=== PATIENT | female | born 2000 | race Caucasian/White ===

== ENCOUNTER 2024-01-17 13:48 | Outpatient (CLI) | payer BC, SELFPAY ==
--- NOTE | 2024-01-17 14:00 | CRLHL7_ITS ---
For Patients: As a result of the Century Cures Act, medical imaging exams and procedure reports are released immediately into your electronic medical record. You may view this report before your referring provider. If you have questions, please contact your health care provider. INDICATION: Dating and viability. LMP 11/14/2023. COMPARISON: None. TECHNIQUE: Real-time nichols-scale imaging of the pelvis was performed. FINDINGS: Sonographic imaging demonstrates a single living intrauterine gestation. The embryo has a regular cardiac rate measuring 171 beats per minute. The embryo`s crown-rump length measures 2.7 cm which corresponds to a gestational age of 9 weeks 4 days with sonographic due date 08/17/2024. There is a normal-appearing yolk sac. The placenta has not yet developed. No evidence of a perigestational hemorrhage. The right ovary was not visualized. The left ovary measures 3.3 x 2.1 x 1.9 cm. No free fluid in the pelvic cul-de-sac. IMPRESSION: 1. Single living intrauterine gestation corresponding to an ultrasound gestational age of 9 weeks 4 days with sonographic due date 08/17/2024. 2. The clinical gestational age by LMP is 9 weeks 1 day. Dictated by Kelley Rodriguez MD @ 01/18/2024 3:11:29 AM (Electronically Signed)
== END 2024-01-17 13:49 | disposition home or self-care (01) ==
LOC: US 13:49
PROVIDERS: PCP Family Medicine; Visit Provider Registered Nurse
DX: Z34.91 Encounter for supervision of normal pregnancy, unspecified, first trimester (principal); Z3A.09 9 weeks gestation of pregnancy
CPT/HCPCS: 76801; 86592; 86703; 86704; 86706; 86762; 86787; 86803; 86850; 86900; 86901; 87086; 87340; 87491; 87591

== ENCOUNTER 2024-01-17 14:46 | Outpatient (CLI) | payer BC, SELFPAY ==
[2024-01-17 19:50] LABS: Chlamydia DNA Amplified* NOT DETECTED (No Detected); GC DNA Amplified* NOT DETECTED (No Detected)
== END 2024-01-17 14:47 | disposition home or self-care (01) ==
PROVIDERS: PCP Family Medicine; Visit Provider Registered Nurse
DX: Z34.91 Encounter for supervision of normal pregnancy, unspecified, first trimester (principal); Z3A.09 9 weeks gestation of pregnancy
CPT/HCPCS: 86592; 86703; 86704; 86706; 86762; 86787; 86803; 86850; 86900; 86901; 87086; 87340; 87491; 87591

== ENCOUNTER 2024-01-31 16:03 | Emergency (ER) | payer BC, SELFPAY ==
[2024-01-31 16:06] VITALS: BP 125/89; PULSE 105; RESP 18; TEMP 36.3; O2SAT 98; BMI 29.4
--- NOTE | 2024-01-31 17:16 | ED_ITS ---
HPI - General Adult General Date Seen: 01/31/24 Chief complaint: Nausea/Vomiting Stated complaint: 11 weeks , vomiting Time Seen by Provider: 01/31/24 17:01 Source: patient Mode of arrival: ambulatory Limitations: no limitations History of Present Illness HPI narrative: Patient is a 23-year-old generally healthy young woman with vomiting during . She reports that she has been having trouble for a number of weeks, initially Zofran was helping but then it stopped working, she was switched to Compazine which she says helped a week ago but then she started vomiting again and it stopped helping. She did refill her Zofran but has not had a chance to pick it up yet. She says she has been vomiting all day, can not keep anything down. She denies abdominal pain, urinary symptoms, fevers, chills, vaginal bleeding. This is her 1st . Related Data Home Medications ?Medication ?Instructions ?Recorded ?Confirmed docosahexaenoic acid 200 mg mg PO 01/17/24 01/17/24 capsule ( DHA) Previous Rx's ?Medication ?Instructions ?Recorded promethazine 25 mg tablet 12.5 - 25 mg (0.5 - 1 x 25 mg) PO 01/17/24 Q4-6H PRN nausea and vomiting #30 tabs Allergies Allergy/AdvReac Type Severity Reaction Status Date / Time amoxicillin Allergy Intermediate Verified 01/17/24 14:37 seasonal Allergy Mild Uncoded 01/17/24 14:37 Review of Systems Status of ROS: Reports: 6 or more systems reviewed and unremarkable except as noted in History and below [facility] Medical History Asthma, exercise induced ?J45.990 - Exercise induced bronchospasm (ICD-10) Surgical History H/O wisdom tooth extraction ?K08.409 - Partial loss of teeth, unspecified cause, unspecified class (ICD- 10) Social History 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 E cigarette use. What is your current living situation?: I presently have a place to live Problems where you live: no known problems In the past 12 months, utilities in danger of being shut off: no In the past 12 mos, have been you worried that your food would run out before you had money to buy more?: never true In the past 12 mos, the food you bought just didn't last and you didn't have money to buy more?: never true Do you use any of these nicotine containing products: Vaping Products How often do you have a drink containing alcohol: never AUDIT-C Alcohol total score: 0 Non-prescribed substance use: denies use How often does anyone, including family, friends and others, physically hurt you : never How often does anyone, including family, friends and others, insult or talk down to you: never How often does anyone, including family, friends and others, threaten you with harm: never How often does anyone, including family, friends and others, scream or curse at you: never Exam Narrative: Exam Narrative: Vital signs reviewed In general, alert, nontoxic young woman. Head: Normocephalic, atraumatic. Eyes: Sclera clear. Pupils equal and reactive. ENT: Mucous membranes moist. Neck: Supple without adenopathy. Heart: Regular rate and rhythm without murmur. Lungs: Clear. No increased work of breathing, crackles or wheezes. Abdomen: Soft, nontender to palpation. Extremities: Well perfused, pulses intact. No significant edema. Neurologic: Alert, conversant. Speech fluent, face symmetric. Moves all extremities equally. Skin: Warm, dry well perfused. Affect: Normal. Const: Vital Signs, click to edit/add: Vital Signs - 24 hr 01/31/24 16:06 Temperature 97.4 F L Pulse Rate [Pulse Oximeter] 105 H Respiratory Rate 18 Blood Pressure [Ri ght Upper Arm] 125/89 Pulse Oximetry 98 Oxygen Delivery Me thod Room Air Documenting provider has reviewed patient's vital signs: yes Course Course ED Course: We will give her some IV fluids here, I am going to try Reglan, discussed with her that if that is helpful I might prescribed that for her and she could potentially just alternate between Zofran and Reglan. Will check some basic labs as well. Abdominal exam is benign, I have low suspicion for alternate causes such as appendicitis, bowel obstruction, urinary tract infection, or gastroenteritis. Labs are overall pretty reassuring. Her carbon oxide level is 19, BUN is 9, creatinine is 0.4, blood sugar is 79. CBC is normal. Urinalysis shows 3+ ketones, otherwise unremarkable. She is feeling improved after fluids and antiemetics here, was able to eat and drink with no further vomiting. I think it is reasonable discharge home. She has Compazine, she can alternate that with the Zofran. Discussed with her that if she continues to have problems over the next couple of weeks that outpatient IV fluids can be arranged through [facility] if needed. Discuss further with them if she has ongoing difficulty. Return to the ER at any time for acute worsening or new symptoms such as significant abdominal pain. Vital Signs Vital signs: Initial Vital Signs Temperature 97.4 F L 01/31/24 16:06 Temperature Source Temporal Artery Scan 01/31/24 16:06 Pulse Rate 105 H 01/31/24 16:06 Pulse Rhythm Regular 01/31/24 16:06 Respiratory Rate 18 01/31/24 16:06 Blood Pressure 125/89 01/31/24 16:06 Blood Pressure Mean 101 01/31/24 16:06 Blood Pressure Position Sitting 01/31/24 16:06 Pulse Oximetry 98 01/31/24 16:06 Oxygen Delivery Method Room Air 01/31/24 16:06 Vital Signs Temperature 97.4 F L 01/31/24 16:06 Pulse Rate 105 H 01/31/24 16:06 Respiratory Rate 18 01/31/24 16:06 Blood Pressure 125/89 01/31/24 16:06 Pulse Oximetry 98 01/31/24 16:06 Oxygen Delivery Method Room Air 01/31/24 16:06 Temperature 97.4 F L 01/31/24 16:06 Pulse Rate 105 H 01/31/24 16:06 Respiratory Rate 18 01/31/24 16:06 Blood Pressure 125/89 01/31/24 16:06 Pulse Oximetry 98 01/31/24 16:06 Oxygen Delivery Method Room Air 01/31/24 16:06 Medications Administered Medications: Discontinued Medications Generic Name Dose Route Start Last Admin Trade Name Freq PRN Reason Stop Dose Admin Sodium Chloride 1,000 mls @ 1,000 mls/hr 01/31/24 17:15 01/31/24 18:56 0.9 % Sodium Chloride 1000 Ml IV 01/31/24 18:14 Infused .Q1H LUIS MIGUEL Infusion Metoclopramide HCl 10 mg/ 102 mls @ 306 mls/hr 01/31/24 17:01 01/31/24 18:06 Sodium Chloride IVPB 01/31/24 17:02 Infused ONCE ONE Infusion Medical Decision Making Lab Data Labs: Lab Results 01/31/24 01/31/24 Range/Units 17:33 Unknown WBC 10.21 (4.50-11.00) K/uL RBC 4.87 (4.00-5.20) m/uL Hgb 14.0 (12.0-16.0) gm/dL Hct 42.8 (33.0-51.0) % MCV 88 (80-100) fL MCH 29 (26-34) pg MCHC 33 (32-36) gm/dL RDW Coeff of Nuha 12.5 (11.5-15.5) % Plt Count 293 (140-440) K/uL Neut % (Auto) 73.0 H (42.0-72.0) % Lymph % (Auto) 20.0 (20-44) % [place] % (Auto) 5.5 (0.0-11.0) % Eos % (Auto) 1.2 (0.0-7.0) % Baso % (Auto) 0.2 (0.0-3.0) % Neut # (Auto) 7.50 H (1.7-7.0) K/uL Lymph # (Auto) 2.04 (0.90-2.90) K/uL [place] # (Auto) 0.60 (0.00-0.90) K/UL Eos # (Auto) 0.12 (0.00-0.50) K/uL Baso # (Auto) 0.02 (0.00-0.30) K/uL Abs Immat Gran (auto) 0.01 (0.00-0.30) K/uL Imm/Tot Granulo (auto) 0.1 % Sodium 138 (135-149) mmol/L Potassium 3.8 (3.6-5.1) mmol/L Chloride 104 (96-114) mmol/L Carbon Dioxide 19 L (20-32) mmol/L Anion Gap 15 (7-15) mEq/L BUN 9 (5-24) mg/dL Creatinine 0.4 L (0.5-1.5) mg/dL Estimated Creat Clear 212.71 Estimated GFR 143 ml/min Glucose 79 (60-115) mg/dL Calcium 10.0 (8.4-10.6) mg/dL Urine Color Dark yellow (Yellow) Urine Appearance Cloudy A (Clear) Urine pH 5.5 (5.0-8.5) Ur Specific Bradley >= 1.030 (1.000-1.030) Urine Protein 2+ A (Negative) Urine Glucose (UA) Negative (Negative) Urine Ketones 3+ A (Negative) Urine Blood Trace-intact A (Negative) Urine Nitrite Negative (Negative) Urine Bilirubin 1+ A (Negative) Urine Urobilinogen 0.2 (0.2-1.0) Ur Leukocyte Esterase Negative (Negative) Urine RBC 0-2 (0-2) Urine WBC 2-5 (0-5) Ur Squamous Epith Cells Moderate A (None-Few) Urine Bacteria Few A (None) Urine Yeast Few A (None) Discharge Plan Discharge Clinical Impression: Nausea and vomiting during Patient Disposition: Home, Self-Care Condition: Improved Instructions: Nausea and Vomiting in (ED) Additional Instructions: Continue use of Zofran at home, if needed can try alternating with Compazine. If not having let controlling vomiting with this, please talk with your OB provider. Outpatient IV fluids can be arranged if needed. Return any time for significant worsening or new symptoms. Prescriptions: No Action DHA 200 mg capsule PO promethazine 25 mg tablet 12.5 - 25 mg PO Q4-6H PRN (Reason: nausea and vomiting) Qty: 30 0RF Follow Up/Referrals: Dalila Fregoso MD [Primary Care Provider] - Stand Alone Forms: [place] [employer] Info Instructions
[2024-01-31 17:28] LABS: Appearance Urine Cloudy (Clear); Bilirubin Urine 1+ (Negative); Blood Urine Trace-intact (Negative); Color Urine Dark yellow (Yellow); Glucose Urine Negative (Negative); Ketones Urine 3+ (Negative); Leukocyte Esterase Urine Negative (Negative); Nitrite Urine Negative (Negative); Protein Urine 2+ (Negative); Specific Gravity Urine >= 1.030 (1.000-1.030); Urobilinogen Urine 0.2 (0.2-1.0); pH Urine 5.5 (5.0-8.5)
[2024-01-31 17:41] LABS: Basophils Absolute Auto 0.02 K/uL (0.00-0.30); Basophils Percent Auto 0.2 % (0.0-3.0); Eosinophils Absolute Auto 0.12 K/uL (0.00-0.50); Eosinophils Percent Auto 1.2 % (0.0-7.0); Hematocrit 42.8 % (33.0-51.0); Immature Granulocytes Abs Auto 0.01 K/uL (0.00-0.30); Immature Granulocytes Pct Auto 0.1 %; Lymphocytes Absolute Auto 2.04 K/uL (0.90-2.90); Mean Corpuscular HGB Conc 33 gm/dL (32-36); Mean Corpuscular Hemoglobin 29 pg (26-34); Mean Corpuscular Volume 88 fL (80-100); Monocytes Percent Auto 5.5 % (0.0-11.0); Platelet Count* 293 K/uL (140-440); RDW Coefficient of Variation % 12.5 % (11.5-15.5); Red Blood Count 4.87 m/uL (4.00-5.20); White Blood Count* 10.21 K/uL (4.50-11.00)
[2024-01-31] MEDS: 0.9 % SODIUM CHLORIDE 1000 ml 1,000 ML IV (17:46)
[2024-01-31] MEDS: METOCLOPRAMIDE HCL 10 MG in 0.9 % SODIUM CHLORIDE 100 ml 100 ML 306 MG IVPB (17:46)
[2024-01-31 17:48] LABS: Slide Review Reflex No
[2024-01-31 17:53] LABS: Chloride* 104 mmol/L (96-114)
[2024-01-31 17:54] LABS: Potassium* 3.8 mmol/L (3.6-5.1); Sodium* 138 mmol/L (135-149)
[2024-01-31 17:56] LABS: Bacteria Urine Few; RBC Urine 0-2 (0-2); Squamous Epithelial Cell Urine Moderate (None-Few)
[2024-01-31 17:56] LABS: Creatinine* 0.4 mg/dL (0.5-1.5); Est. Creatinine Clearance* 212.71; Estimated Glomerular Filt Rate 143 ml/min
[2024-01-31 17:57] LABS: Anion Gap 15 mEq/L (7-15); Blood Urea Nitrogen* 9 mg/dL (5-24); Carbon Dioxide* 19 mmol/L (20-32); Glucose* 79 mg/dL (60-115)
== END 2024-01-31 19:09 | disposition home or self-care (01) ==
PROVIDERS: Emergency Provider Emergency Medicine; PCP Family Medicine
DX: O21.9 Vomiting of pregnancy, unspecified (principal); Z3A.11 11 weeks gestation of pregnancy
CPT/HCPCS: 36415; 80048; 81001; 85025; 87086; 87186; 96365; 99283; 99284; J2765; J7030

== ENCOUNTER 2024-03-06 11:52 | Outpatient (CLI) | payer BC, SELFPAY | END 2024-03-06 11:53 | disposition home or self-care (01) | LOC: NFLDREF 11:53 | PROVIDERS: PCP Family Medicine; Visit Provider Advanced Practice Midwife | DX: O23.42 Unspecified infection of urinary tract in pregnancy, second trimester (principal); N39.0 Urinary tract infection, site not specified | CPT/HCPCS: 87086 ==

== ENCOUNTER 2024-03-23 12:44 | Outpatient (CLI) | payer BC, SELFPAY ==
[2024-03-23 14:45] LABS: Bacterial Vaginosis* Negative (Negative); Candida glab/krus NOT DETECTED (No Detected); Candida species NOT DETECTED (No Detected); Trichomonas vaginalis NOT DETECTED (No Detected)
== END 2024-03-23 12:45 | disposition home or self-care (01) ==
LOC: NFLDREF 12:45
PROVIDERS: PCP Family Medicine; Visit Provider Registered Nurse
DX: O26.892 Other specified pregnancy related conditions, second trimester (principal); R10.2 Pelvic and perineal pain; Z3A.18 18 weeks gestation of pregnancy
CPT/HCPCS: 81513; 87086; 87481; 87661

== ENCOUNTER 2024-04-03 12:37 | Outpatient (CLI) | payer BC, SELFPAY | END 2024-04-03 12:38 | disposition home or self-care (01) | LOC: US 12:37 | PROVIDERS: PCP Family Medicine; Visit Provider Midwife | DX: Z34.92 Encounter for supervision of normal pregnancy, unspecified, second trimester (principal); Z3A.20 20 weeks gestation of pregnancy | CPT/HCPCS: 76805 ==

== ENCOUNTER 2024-04-17 11:56 | Outpatient (CLI) | payer BC, SELFPAY ==
--- NOTE | 2024-04-17 12:15 | CRLHL7_ITS ---
For Patients: As a result of the Century Cures Act, medical imaging exams and procedure reports are released immediately into your electronic medical record. You may view this report before your referring provider. If you have questions, please contact your health care provider. OB ULTRASOUND ALANIS by LMP: 08/20/2024. GA: 22 w, 1 d. Comparison: 04/03/2024. INDICATION: Follow-up missing anatomy views (legs, feet, heart). TECHNIQUE: Real time grayscale imaging of the fetus was performed. Transabdominal. CERVIX: Visualized. Measurement: 3.2 cm. POSITIONING: Vertex. AMNIOTIC FLUID: 3.9 cm. SDP (N: greater than 2 x 1 cm) PLACENTA: Technique: Transabdominal. PLACENTA POSITION: Anterior. DOPPLER: heart rate: 145 bpm. IMPRESSION: 1. Right renal pelviectasis has developed measuring 4.9 mm. 2. Normal cardiac structures. 3. Normal legs and feet. 4. Recommend third trimester follow-up regarding the right renal pelviectasis. Roberth Higgins M.D. Diagnostic Radiologist [email or web address] LYSSA/yonny blancas/Dictated by: Roberth Higgins MD @ 04/17/2024 12:42:00 PM (Electronically Signed)
== END 2024-04-17 11:57 | disposition home or self-care (01) ==
LOC: US 11:57
PROVIDERS: PCP Family Medicine; Visit Provider Advanced Practice Midwife
DX: O35.BXX0 Maternal care for other (suspected) fetal abnormality and damage, fetal cardiac anomalies, not applicable or unspecified (principal); O35.HXX0 Maternal care for other (suspected) fetal abnormality and damage, fetal lower extremities anomalies, not applicable or unspecified; Z3A.22 22 weeks gestation of pregnancy
CPT/HCPCS: 76816

== ENCOUNTER 2024-05-29 11:00 | Outpatient (CLI) | payer BC, SELFPAY | END 2024-05-29 11:01 | disposition home or self-care (01) | LOC: NFLDREF 05-30 16:37 | PROVIDERS: PCP Family Medicine; Referring Provider Family Medicine; Visit Provider Obstetrics & Gynecology | DX: Z34.93 Encounter for supervision of normal pregnancy, unspecified, third trimester (principal); Z3A.28 28 weeks gestation of pregnancy | CPT/HCPCS: 86592 ==

== ENCOUNTER 2024-06-12 13:41 | Outpatient (CLI) | payer BC, SELFPAY ==
--- NOTE | 2024-06-12 14:00 | CRLHL7_ITS ---
For Patients: As a result of the Century Cures Act, medical imaging exams and procedure reports are released immediately into your electronic medical record. You may view this report before your referring provider. If you have questions, please contact your health care provider. ULTRASOUND OB PELVIS FOLLOW-UP SUBOPTIMAL VIEWS, TRANSABDOMINAL CLINICAL HISTORY: LMP: 11/14/2023. ALANIS by LMP: 08/20/2024. GA: 30w, 1d. Single. INDICATION: Re-evaluate right renal pelvis. CERVIX: Not visualized. POSITIONING: Vertex. AMNIOTIC FLUID: 5.8 cm. PLACENTA: Technique: Transabdominal. PLACENTA POSITION: Anterior. DOPPLER: heart rate: 134 bpm. IMPRESSION: Right renal pelvis measures 7.4 mm. Continued follow-up recommended. Roberth Higgins M.D. Diagnostic Radiologist [email or web address] SP/Dictated by: Roberth Higgins MD @ 06/12/2024 7:04:00 PM (Electronically Signed)
== END 2024-06-12 13:42 | disposition home or self-care (01) ==
LOC: US 13:42
PROVIDERS: PCP Family Medicine; Visit Provider Obstetrics & Gynecology
DX: Z34.93 Encounter for supervision of normal pregnancy, unspecified, third trimester (principal); Z3A.30 30 weeks gestation of pregnancy
CPT/HCPCS: 76816

== ENCOUNTER 2024-07-10 12:24 | Outpatient (CLI) | payer BC, SELFPAY | END 2024-07-10 12:25 | disposition home or self-care (01) | LOC: NFLDREF 07-17 22:44 | PROVIDERS: PCP Family Medicine; Referring Provider Family Medicine; Visit Provider Obstetrics & Gynecology | DX: Z34.93 Encounter for supervision of normal pregnancy, unspecified, third trimester (principal); Z3A.34 34 weeks gestation of pregnancy | CPT/HCPCS: 82728 ==

== ENCOUNTER 2024-07-13 19:45 | Outpatient (CLI) | payer BC, SELFPAY ==
[2024-07-13 19:55] VITALS: BP 127/78; PULSE 96
[2024-07-13 20:29] LABS: Appearance Urine Clear (Clear); Bilirubin Urine Negative (Negative); Blood Urine Negative (Negative); Color Urine Yellow (Yellow); Glucose Urine Negative (Negative); Ketones Urine 2+ (Negative); Leukocyte Esterase Urine Negative (Negative); Nitrite Urine Negative (Negative); Protein Urine Negative (Negative); Urobilinogen Urine 0.2 (0.2-1.0)
[2024-07-13 20:38] VITALS: BP 119/74; PULSE 84
--- NOTE | 2024-07-13 21:20 | PC.OBNST ---
NST Note NST Note Start: 07/13/24 19:53 Freq: ONCE Status: Active Protocol: Document 07/13/24 21:18 LANETTE (Rec: 07/13/24 21:19 LANETTE Desktop) NST Note 1 Para (# of births) 0 EDC 08/20/24 Gestational Age In Weeks & Days 34 Weeks & 4 Days Patient Presented with Complaint(s) of Other Other Complaints Elevated BP at home. No MD orders to check home BPs she was just curious and it was high. Reactive Yes Appropriate for Gestational Age Yes RN Emma Augustine RN Date 07/13/24 Reactive Yes Appropriate for Gestational Age Yes RN Dr. Ray Date 07/13/24 OB NST charge Yes Complete NST Note via Write Note Yes The provider's electronic signature indicates the NST is reactive/appropriate for gestational age. *Note to provider: If an addendum is required, open the patient's chart and click on the note under the Nurse/Allied Health tab.
== END 2024-07-13 21:11 | disposition home or self-care (01) ==
LOC: OB OUT 19:45 → OB 19:46
PROVIDERS: PCP Family Medicine; Visit Provider Obstetrics & Gynecology
DX: O26.893 Other specified pregnancy related conditions, third trimester (principal); R03.0 Elevated blood-pressure reading, without diagnosis of hypertension; Z3A.34 34 weeks gestation of pregnancy
CPT/HCPCS: 59025; 81003; G0463

== ENCOUNTER 2024-07-24 12:13 | Outpatient (CLI) | payer BC, SELFPAY ==
[2024-07-24] VITALS (11 sets, daily range): BP systolic 108–119; BP diastolic 58–73; PULSE 73–92; O2SAT 97
[2024-07-24 13:10] LABS: Hematocrit 35.5 % (33.0-51.0); Hemoglobin* 11.2 gm/dL (12.0-16.0); Mean Corpuscular HGB Conc 32 gm/dL (32-36); Mean Corpuscular Hemoglobin 28 pg (26-34); Mean Corpuscular Volume 90 fL (80-100); Platelet Count* 282 K/uL (140-440); Red Blood Count 3.96 m/uL (4.00-5.20); White Blood Count* 8.49 K/uL (4.50-11.00)
[2024-07-24 13:23] LABS: Alanine Aminotransferase* 15 U/L (4-35); Aspartate Amino Transferase* 27 U/L (12-35); Creatinine* 0.4 mg/dL (0.5-1.5); Estimated Glomerular Filt Rate 142 ml/min
[2024-07-24 13:44] LABS: Slide Review Reflex No
[2024-07-24 14:22] LABS: Total Protein Urine < 5 mg/dL
[2024-07-24 14:23] LABS: Creatinine Urine 106.8 mg/dL; Protein Creatinine Ratio Urine 0.05 (0-0.19)
--- NOTE | 2024-07-24 15:06 | PC.OBNST ---
NST Note NST Note Start: 07/24/24 12:20 Freq: ONCE Status: Active Protocol: Document 07/24/24 15:04 CHEN (Rec: 07/24/24 15:06 CHEN Desktop) NST Note 1 Para (# of births) 0 EDC 08/20/24 Gestational Age In 36 Weeks & 1 Days Weeks & Days Patient Presented Other with Complaint(s) of Other Complaints Elevated BP in clinic, down to center for monitoring, serial pressures and labs Reactive Yes Appropriate for Yes Gestational Age RN Brigid Herrera RN Date 07/24/24 Reactive Yes Appropriate for Yes Gestational Age DAVION Mcnulty RN Date 07/24/24 OB NST charge Yes Complete NST Note Yes via Write Note The provider's electronic signature indicates the NST is reactive/appropriate for gestational age. *Note to provider: If an addendum is required, open the patient's chart and click on the note under the Nurse/Allied Health tab.
== END 2024-07-24 14:50 | disposition home or self-care (01) ==
LOC: OB OUT 12:16 → OB 12:17
PROVIDERS: Obstetrics & Gynecology; PCP Family Medicine; Visit Provider Obstetrics & Gynecology
DX: O26.893 Other specified pregnancy related conditions, third trimester (principal); R03.0 Elevated blood-pressure reading, without diagnosis of hypertension; Z3A.36 36 weeks gestation of pregnancy
CPT/HCPCS: 36415; 59025; 82565; 82570; 84156; 84450; 84460; 85027; 87081; 87653; G0463

== ENCOUNTER 2024-08-11 21:38 | Outpatient (CLI) | payer BC, SELFPAY ==
[2024-08-11] VITALS (7 sets, daily range): BP systolic 114–118; BP diastolic 70–75; PULSE 76–99; O2SAT 97
[2024-08-11] MEDS: METOCLOPRAMIDE 10 MG TABLET PO (23:03)
--- NOTE | 2024-08-12 21:14 | PC.OBNST ---
NST Note NST Note Start: 08/11/24 21:44 Freq: ONCE Status: Discharge Protocol: Document 08/12/24 00:03 CONOR (Rec: 08/12/24 00:04 CONOR [id number]) NST Note 1 Para (# of births) 0 EDC 08/20/24 Gestational Age In 38 Weeks & 6 Days Weeks & Days Patient Presented Pain with Complaint(s) of If Pain, describe Headache 5 out of [address] Other Complaints Elevated Blood Pressures at home. Normotensive at Center. Reactive Yes DAVION Reinoso, RN Date 08/12/24 Reactive Yes DAVION Moses, DAVION Date 08/12/24 OB NST charge Yes Complete NST Note Yes via Write Note The provider's electronic signature indicates the NST is reactive/appropriate for gestational age. *Note to provider: If an addendum is required, open the patient's chart and click on the note under the Nurse/Allied Health tab.
== END 2024-08-11 23:55 | disposition home or self-care (01) ==
LOC: OB OUT 21:38 → OB 21:38
PROVIDERS: PCP Family Medicine; Visit Provider Obstetrics & Gynecology
DX: O26.893 Other specified pregnancy related conditions, third trimester (principal); R51.9 Headache, unspecified; R03.0 Elevated blood-pressure reading, without diagnosis of hypertension; Z3A.38 38 weeks gestation of pregnancy
CPT/HCPCS: 59025; G0463; A9270

== ENCOUNTER 2024-08-22 13:35 | Inpatient (IN) | payer BC, SELFPAY ==
[2024-08-22] VITALS (14 sets, daily range): BP systolic 108–131; BP diastolic 64–76; PULSE 30–222; RESP 18; TEMP 36.8–37; O2SAT 80–99; BMI 33.9
[2024-08-22] MEDS: LACTATED RINGERS 1000 ML 1,000 ML IV (13:15)
[2024-08-22] MEDS: LACTATED RINGERS 1000 ML 1,000 ML 125 ML IV (14:58)
[2024-08-22] MEDS: OXYTOCIN 30 unit/500 ML in NS 30 UNIT/500 ML BAG IVPB (14:58)
[2024-08-22 15:50] LABS: Basophils Absolute Auto 0.02 K/uL (0.00-0.30); Basophils Percent Auto 0.2 % (0.0-3.0); Eosinophils Absolute Auto 0.18 K/uL (0.00-0.50); Eosinophils Percent Auto 1.7 % (0.0-7.0); Hematocrit 32.3 % (33.0-51.0); Hemoglobin* 10.3 gm/dL (12.0-16.0); Immature Granulocytes Abs Auto 0.05 K/uL (0.00-0.30); Immature Granulocytes Pct Auto 0.5 %; Lymphocytes Percent Auto 19.4 % (20-44); Mean Corpuscular HGB Conc 32 gm/dL (32-36); Mean Corpuscular Hemoglobin 28 pg (26-34); Mean Corpuscular Volume 87 fL (80-100); Monocytes Percent Auto 6.1 % (0.0-11.0); Neutrophils Percent Auto 72.1 % (42.0-72.0); Platelet Count* 269 K/uL (140-440); RDW Coefficient of Variation % 12.8 % (11.5-15.5); Red Blood Count 3.71 m/uL (4.00-5.20); White Blood Count* 10.33 K/uL (4.50-11.00)
[2024-08-22 15:52] LABS: Slide Review Reflex No
[2024-08-22] MEDS: DINOPROSTONE 10 MG VAGINAL INSERT VAGINAL (17:35)
--- NOTE | 2024-08-22 18:43 | PM.OBHPLI ---
OB - H&P: HPI Labor/Induction History of Present Illness Date Seen: 08/22/24 Chief complaint: Maternity Narrative: Delayed documentation due to patient cares. Ruben is a 24yo at 40w2d GA who presented for decreased movement. is complicated by anemia, pyelectasis, tobacco use disorder, marginal cord insertion (1.6cm from edge) and history of depression. On arrival, her NST was found to be nonreactive for minimal variability and subtle spontaneous decelerations - where an IV was placed and 1L crystalloid was administered alongside PO juice. status improved in terms of variability and 10x10 accelerations, decision was made to admit for delivery in the setting of nonreassuring heart tones and term. She continued to have intermittent category 2 tracing for periods of minimal variability and intermittent spontaneous decelerations. During observation, Ruben noted movement improved. I presented to the bedside to discuss potential next steps. She noted no regular/painful contractions, vaginal bleeding or leaking of fluids. We discussed that delivery is recommended in the setting of nonreassuring testing at term. Discussed options including contraction stress test prior to proceeding with IOL vs primary C/S without trial of labor. Ruben expressed desire to avoid C/S if possible, where a cervical exam was performed where cervix was noted to be closed. Acceleration was noted with scalp stimulation during exam at 1428. We mutually agreed to proceed with a contraction stress test with pitocin after discussion of risks/benefits. Pitocin got up to 4mu/min before we had a period of 3 contractions within 10 minutes, then held at that dose for 1 hour. Throughout this monitoring period, FHR tracing was primarily category 1 with baseline of 125bpm, moderate variability and 15x15 accelerations seen. There was an apparent sleep cycle during which there was minimal variability. However, no late decelerations nor significant variable decelerations were seen - representing a negative FILM EXAMINER. As such, we mutually decided to discontinue pitocin and proceed with IOL with cervical ripening via cervidil. Specific Issues/Plans G 1 P 0 It is a girl! S.O.: Jose # UTI asymptomatic Staph aureus in ED on 01-31-24. Not treated at ED. Macrobid submitted on 02-14-24. ARYAN 03/06/24. # Tobacco use/E-cigarette use. Decreasing and trying to quit. Reviewed risks. # History of situational depression. Was told to d/c her Lexapro at start of by outside provider. Patient currently stable off medication # Cord insertion 1.6 cm - not considered marginal by MFM as greater than 1 cm -no f/u needed. # Right renal pelviectasis: F/U US needed 3rd trimester [x] repeat US at 30 weeks: Right renal pelvis 7mm. follow-up will be needed. # degenerative disc disease L5-S1 #Anemia - on PO iron, Hgb 10.7 at 34 weeks H&P: 08/01/[address] Nickerson Imagin04/03/24: 1. Sonographic gestational age 20 weeks 4 days and sonographic due date 08/17/2024. Good correlation with dates. 2. Incomplete visualization of the feet, legs, and heart due to position. Remainder of the anatomic survey normal. Short-term follow-up recommended. 3. Marginal placental cord insertion located 1.6 cm from the placental edge. 04/17/24: F/U to Anatomy scan for missing views: 1. Right renal pelviectasis has developed measuring 4.9 mm. 2. Normal cardiac structures. 3. Normal legs and feet. 4. Recommend third trimester follow-up regarding the right renal pelviectasis. Vaccinations: Flu: Recommended. Declines. Covid: Not vaccinated. Recommended. Declines. Tdap: 06/12/2024 RSV: n/a 32 week mental health: PHQ 0, GAD7 2. GBS negative Will be due for PP pap. Last pap 05/2021 NIL. Meds Home Medications and Allergies Home Medications ?Medication ?Instructions ?Recorded ?Confirmed ?Type docosahexaenoic acid 200 mg 200 mg PO DAILY 01/17/24 08/13/24 History capsule ( DHA) acetaminophen 325 mg tablet 650 mg PO Q6H PRN 02/14/24 08/13/24 History (Tylenol) docusate sodium 100 mg capsule 100 mg PO BID PRN 02/14/24 08/13/24 History (Colace) aspirin 81 mg chewable tablet 81 mg PO QDAY 03/23/24 08/13/24 History (Children's Aspirin) ferrous sulfate 325 mg (65 mg 325 mg PO DAILY 06/12/24 08/13/24 History iron) tablet (FeroSul) Allergies Allergy/AdvReac Type Severity Reaction Status Date / Time amoxicillin Allergy Intermediate Verified 08/13/24 09:05 seasonal Allergy Mild Uncoded 08/13/24 09:05 OB - H&P: Exam Physical Exam: Vital signs: Temp Pulse Resp BP Pulse Ox 98.6 F 89 18 131/76 98 08/22/24 13:24 08/22/24 18:34 08/22/24 13:24 08/22/24 18:34 08/22/24 13:55 Narrative: General: Alert and oriented, in no acute distress Psych: Appropriate mood and affect FHR: Summarized above. At present, category 1 with baseline of 125bpm, moderate variability, accelerations present and no decelerations seen. Cervix: Closed, long and off to maternal left OB - Results Labs Labs: Short CBC 08/22/24 Range/Units 15:20 WBC 10.33 (4.50-11.00) K/uL Hgb 10.3 L (12.0-16.0) gm/dL Hct 32.3 L (33.0-51.0) % Plt Count 269 (140-440) K/uL OB - Problem Based A/P Additional Plan (1) Pyelectasis of fetus on ultrasound: Problem details: Right, 7 mm at 30 weeks gestation Status: Acute (2) Tobacco use: Status: Acute (3) Depression: Status: Chronic (4) Decreased movement during : Status: Acute Plan Ruben is a 24yo who presented at 40w2d GA for decreased movement. is complicated by anemia, tobacco use disorder, pyelectasis and history of anxiety/depression. Decision was made to proceed with admission for nonreactive NST at term. recovery was noted to occur with IV fluid bolus, PO juice intake and observation. Discussion of plan of care was held - including FILM EXAMINER followed by IOL vs consideration of primary C/S without trial of labor. Ruben expressed a desire to avoid C/S if possible, thus FILM EXAMINER was performed with IV pitocin, found to be negative. Pitocin was discontinued, plan to start IOL with cervidil as her cervix is currently closed. Counseled Ruben about increased risk of C/S for nonreassuring heart tones given her nonreactive NST on admission, but reassuring FILM EXAMINER result. Explained that active labor and the second stage are anticipated to be increasingly stressful to the fetus, where FHR changes could recur prompting C/S. Explained if intolerance is noted with cervidil overnight, we will have a low threshold to proceed with C/S or consider nonpharmacologic options such as Cook catheter as an alternative. She expressed understanding and is in agreement with plan. - Start IOL with cervidil x 12 hours - Hgb and T/S on admission for maternal anemia - Continuous monitoring ongoing - BT A positive - GBS negative
[2024-08-23] VITALS (13 sets, daily range): BP systolic 107–141; BP diastolic 59–87; PULSE 74–97; RESP 16; TEMP 36.4–36.9; O2SAT 97–98
[2024-08-23] MEDS: ACETAMINOPHEN 500 MG TABLET 1000 MG PO ×3 (04:16→21:20)
--- NOTE | 2024-08-23 13:51 | PM.OBPNL ---
Subjective Time Seen by Provider: 10:00 Date Seen: 08/23/24 Narrative: Patient is s/p 12 hours of cervidil with minimal change. Discussed need for cook catheter. Patient is frustrated that IOL is taking so long. Reassured patient that this can be normal for primip. The latent phase can be prolonged and unpredictable. When she gets into active labor, we anticipate more regular cervical change. We discussed leaving cook cath in for 12 hours. After that, induction can be ongoing with pitocin and/or AROM. We discussed the definition of failed induction which is unable to reach active phase despite having adequate contractions, rupture of membrane, in being on pitocin for 18-24 hours depending on the clinical context. She consented to Cook cath. It was placed at 1000 with 50cc/50cc. Patient was tearful after procedure due to cramping Objective Vital Signs: Last Vital Signs Temp 98 F 08/23/24 12:24 Pulse 82 08/23/24 12:24 Resp 16 08/23/24 12:24 BP 118/71 08/23/24 12:24 Pulse Ox 97 08/23/24 07:09 Pelvic Exam Dilation (cm): 1 Effacement (%): 50 Station: -3 Plan Plan: - On going induction - Pain control: will eventually want epidural
[2024-08-23] MEDS: OXYTOCIN 30 unit/500 ML in NS 30 UNIT/500 ML BAG IVPB (17:28)
[2024-08-23] MEDS: LACTATED RINGERS 1000 ML 1,000 ML 125 ML IV (22:51)
[2024-08-24] VITALS (89 sets, daily range): BP systolic 104–143; BP diastolic 47–94; PULSE 65–108; RESP 16–22; TEMP 36.7–37.5; O2SAT 93–100
[2024-08-24] MEDS: ROPIVACAINE 0.2% 100 ml 100 ML 12 MG EPIDURAL (02:04)
[2024-08-24] MEDS: BUPIVACAINE 0.25% PF 10 ML 10 ML ML EPIDURAL (02:06)
[2024-08-24] MEDS: LACTATED RINGERS 1000 ML 1,000 ML IV ×2 (02:06→05:46)
--- NOTE | 2024-08-24 02:14 | P.ANBPRC_ITS ---
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 What is your current living situation?: I presently have a place to live Problems where you live: no known problems In the past 12 months, utilities in danger of being shut off: no In past 12 months, lack of transportation kept you from medical appts, meetings, work, or getting things needed for daily living: no In the past 12 mos, have been you worried that your food would run out before you had money to buy more?: never true In the past 12 mos, the food you bought just didn't last and you didn't have money to buy more?: never true Smoking Status: Current every day smoker Do you use any of these nicotine containing products: Vaping Products How often do you have a drink containing alcohol: never AUDIT-C Alcohol total score: 0 Non-prescribed substance use: denies use How often does anyone, including family, friends and others, physically hurt you : never How often does anyone, including family, friends and others, insult or talk down to you: never How often does anyone, including family, friends and others, threaten you with harm: never How often does anyone, including family, friends and others, scream or curse at you: never Meds Home Medications and Allergies Home Medications ?Medication ?Instructions ?Recorded ?Confirmed ?Type docosahexaenoic acid 200 mg 200 mg PO DAILY 01/17/24 0 08/23/24 History capsule ( DHA) acetaminophen 325 mg tablet 650 mg PO Q6H PRN 02/14/24 08/23/24 History (Tylenol) docusate sodium 100 mg capsule 100 mg PO BID PRN 02/1308/23/24 History (Colace) aspirin 81 mg chewable tablet 81 mg PO QDAY 03/23/24 0 08/23/24 History (Children's Aspirin) ferrous sulfate 325 mg (65 mg 325 mg PO DAILY 06/12/24 08/23/24 History iron) tablet (FeroSul) Allergies Allergy/AdvReac Type Severity Reaction Status Date / Time amoxicillin Allergy Intermediate Verified 08/13/24 09:05 seasonal Allergy Mild Uncoded 08/13/24 09:05 Results Labs Labs: Laboratory Results - last 24 hr 08/22/24 15:20 Blood Type A Positive Antibody Screen NEGATIVE Vital Signs Vital Signs: Last Vital Signs Temp 98.3 F 08/24/24 02:14 Pulse 79 08/24/24 02:12 Resp 16 08/23/24 16:18 BP 143/92 H 08/24/24 02:12 Pulse Ox 97 08/24/24 02:12 Weight: 98.203 kg Height: 170.18 cm Anesthesia Procedures Epidural Insertion Patient Location: OB Start Time: 01:40 Stop Time: 02:15 Start Date: 08/24/24 Stop Date: 08/24/24 Reason for Block: procedure for pain Patient Position: sitting Performed By: Edmond Guillaume Preanesthetic Checklist: IV checked, risks and benefits discussed, monitors and equipment checked, pre-op evaluation, timeout performed and anesthesia consent Prep: chlorhexidine gluconate Monitoring: blood pressure monitoring, continuous pulse oximetry and heart rate Approach: midline Vertebral Space: lumbar (1-5) Epidural Technique: ENEIDA saline Needle Type: Tuohy needle Injection Technique: continuous catheter Needle gauge: 17 Needle Length (cm): 10 cm Needle Insertion Depth (cm): 7 Catheter Gauge: 19 Catheter Type: multi-orifice Catheter at skin depth (cm): 13 Test Dose Result: negative and lidocaine 1.5% with epinephrine 1 to 200,000
[2024-08-24] MEDS: BUPIVACAINE 0.25% PF 10 ML 10 ML ML 7 ML EPIDURAL (03:00)
--- NOTE | 2024-08-24 03:09 | PM.ANBPRC ---
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 What is your current living situation?: I presently have a place to live Problems where you live: no known problems In the past 12 months, utilities in danger of being shut off: no In past 12 months, lack of transportation kept you from medical appts, meetings, work, or getting things needed for daily living: no In the past 12 mos, have been you worried that your food would run out before you had money to buy more?: never true In the past 12 mos, the food you bought just didn't last and you didn't have money to buy more?: never true Smoking Status: Current every day smoker Do you use any of these nicotine containing products: Vaping Products How often do you have a drink containing alcohol: never AUDIT-C Alcohol total score: 0 Non-prescribed substance use: denies use How often does anyone, including family, friends and others, physically hurt you: never How often does anyone, including family, friends and others, insult or talk down to you: never How often does anyone, including family, friends and others, threaten you with harm: never How often does anyone, including family, friends and others, scream or curse at you: never Meds Home Medications and Allergies Home Medications ?Medication ?Instructions ?Recorded ?Confirmed ?Type docosahexaenoic acid 200 mg 200 mg PO DAILY 01/17/24 08/23/24 History capsule ( DHA) acetaminophen 325 mg tablet 650 mg PO Q6H PRN 02/14/24 08/23/24 History (Tylenol) docusate sodium 100 mg capsule 100 mg PO BID PRN 02/14/24 08/23/24 History (Colace) aspirin 81 mg chewable tablet 81 mg PO QDAY 03/23/24 08/23/24 History (Children's Aspirin) ferrous sulfate 325 mg (65 mg 325 mg PO DAILY 06/12/24 08/23/24 History iron) tablet (FeroSul) Allergies Allergy/AdvReac Type Severity Reaction Status Date / Time amoxicillin Allergy Intermediate Verified 08/13/24 09:05 seasonal Allergy Mild Uncoded 08/13/24 09:05 Results Labs Labs: Laboratory Results - last 24 hr 08/22/24 15:20 Blood Type A Positive Antibody Screen NEGATIVE Vital Signs Vital Signs: Last Vital Signs Temp 98.1 F 08/24/24 03:08 Pulse 80 08/24/24 03:08 Resp 16 08/23/24 16:18 BP 125/83 08/24/24 03:08 Pulse Ox 98 08/24/24 03:07 Weight: 98.203 kg Height: 170.18 cm Anesthesia Procedures Epidural Insertion Patient Location: OB Start Time: 02:50 Stop Time: 03:09 Start Date: 08/24/24 Stop Date: 08/24/24 Reason for Block: procedure for pain (Epidural replaced after first failed to set up.) Patient Position: sitting Performed By: Edmond Guillaume Preanesthetic Checklist: IV checked, risks and benefits discussed, monitors and equipment checked, pre-op evaluation, timeout performed and anesthesia consent Prep: chlorhexidine gluconate Monitoring: blood pressure monitoring, continuous pulse oximetry and heart rate Approach: midline Vertebral Space: lumbar (1-5) Epidural Technique: ENEIDA saline Needle Type: Tuohy needle Injection Technique: continuous catheter Needle gauge: 17 Needle Length (cm): 10 cm Needle Insertion Depth (cm): 7 Catheter Gauge: 19 Catheter Type: multi-orifice Catheter at skin depth (cm): 13 Test Dose Result: negative and lidocaine 1.5% with epinephrine 1 to 200,000
[2024-08-24 03:20] LABS: Hematocrit 32.7 % (33.0-51.0); Hemoglobin* 10.4 gm/dL (12.0-16.0); Mean Corpuscular HGB Conc 32 gm/dL (32-36); Mean Corpuscular Hemoglobin 28 pg (26-34); Mean Corpuscular Volume 87 fL (80-100); Platelet Count* 259 K/uL (140-440); Red Blood Count 3.74 m/uL (4.00-5.20); White Blood Count* 10.95 K/uL (4.50-11.00)
[2024-08-24 03:28] LABS: Slide Review Reflex No
[2024-08-24 03:37] LABS: Alanine Aminotransferase* 13 U/L (4-35); Aspartate Amino Transferase* 29 U/L (12-35); Blood Urea Nitrogen* 7 mg/dL (5-24); Creatinine* 0.5 mg/dL (0.5-1.5); Est. Creatinine Clearance* 168.72; Estimated Glomerular Filt Rate 134 ml/min
[2024-08-24] MEDS: ONDANSETRON 2 MG/ML inj 4 MG IV (04:04)
[2024-08-24] MEDS: PHENYLEPHRINE 100 MCG/ML SYRINGE IVP (04:29)
[2024-08-24] MEDS: AZITHROMYCIN 500 MG in 0.9 % SODIUM CHLORIDE 250 ml 250 ML 255 MG IVPB (08:39)
--- NOTE | 2024-08-24 08:39 | P.OBPN_ITS ---
Subjective Time Seen by Provider: 08:39 Date Seen: 08/24/24 Narrative: Subjective: Patient is comfortable w/ epidural. Pitocin was restarted at approximately 7:30 a.m.after was stopped at approximately 6:00 a.m. today. At 7:52 a.m. the heart rate had a deceleration that was late in appearance lasting approximately 2 minutes so the Pitocin was turned off. Verbal consent obtained to place an intrauterine pressure catheter and scalp electrode. Vital signs: Per electronic medical record. EFM: Baseline 120s, positive accelerations, intermittent late decelerations, minimal to moderate variability. Category 2. FSE Placed. Spontaneous late decelerations with less than half of the contractions but unable to start Pitocin due to intolerance of contractions once Pitocin is started. [place]: Contractions every 5-7 minutes. IUPC placed and there was a greater than 15 x 15 beat per minute acceleration with IUPC placement which was reassuring for status. SVE: 7 cm/ 90%/ 0 Assessment: 24-year-old 1 para 0 at 40 weeks 4 days gestation undergoing induction of labor for decreased movement and episodes of minimal variability on NST. Plan: 1. Stopped Pitocin 2. Recommended primary low-transverse for nonreassuring heart rate tracing. 3. Consent for primary low-transverse section reviewed and signed. Objective Vital Signs: Last Vital Signs Temp 98.4 F 08/24/24 07:07 Pulse 95 08/24/24 08:33 Resp 16 08/23/24 16:18 BP 118/73 08/24/24 08:33 Pulse Ox 98 08/24/24 08:32 Pelvic Exam Dilation (cm): 1 Effacement (%): 50 Station: -3
--- NOTE | 2024-08-24 08:51 | P.PCN_ITS ---
Procedure Note Time Seen by Provider: 09:42 Date Seen: 08/24/24 Date of procedure: 08/24/24 Will [facility] bill your pro fee for this procedure?: Yes Procedure: Preoperative diagnosis: 24-year-old 1 para 0 at 40 and 4/7 weeks 1. Code white for extended heart rate deceleration. Postoperative diagnosis: Same Procedure: Primary low-transverse section Anesthesia: Epidural Surgeon: Meaghan Ray MD Commissary Steward: Not applicable Quantitative blood loss: 487 mL IV Fluid: 1400 mL Urine output: 100 mL Specimen: placenta to pathology Drain(s): Preston to gravity Indications: An extended deceleration was noted at 08:47 through 8:50am, Vikash in the 70s. A code white was called. In the OR the FHR had returned to the 130's so proceeded with the usual prep for a . Findings: A live female infant was delivered from the ROT position at 9:07 a.m.. Apgars were 8 at 1 min and 9 at 5 min, respectively. Infant weight: 3820 g, 8 lb 7 oz. Nuchal cord(s): Yes: 2 loose nuchal cords and 1 body cord. The nuchal cords were reduced prior to delivery of the infant's shoulders at the surgical field, the was delivered through the body cord. The placenta was delivered spontaneously and complete at 9:09 a.m.. Amniotic fluid: Thin meconium-stained. Normal uterus, fallopian tubes and ovaries were noted. Other findings: None Procedure: Ruben was taken to the OR where epidural anesthetic was found be adequate. A Preston catheter was placed. The patient was then placed in the dorsal supine position with a leftward tilt. She was then prepped and draped in a normal sterile manner. A Pfannenstiel skin incision was made and carried through sharply to the underlying layer of fascia. Fascia was incised in the midline and this incision carried laterally with Pollack scissors. The superior aspect of fascial incision was grasped with Vignesh clamps, tented up, and the rectus muscles dissected off with a combination of blunt and sharp dissection. The inferior aspect of the fascial incision was grasped with Vignesh clamps, tented up and again the rectus muscles dissected off with a combination of blunt and sharp dissection. The rectus muscles were in the midline. The peritoneum was entered bluntly. This opening was extended bluntly. An Tres-O self-retaining retractor was placed. A bladder flap was not created. Uterus was incised in a low transverse manner in the midline. This incision carried laterally with blunt pressure on the inferior and superior aspects of the uterine incision. The amniotic sac was ruptured. The 's head and body was delivered atraumatically. The cord was clamped and cut after a 30 second delay. The was shown to the patient and her support person and then handed to waiting pediatric and nursing staff. The placenta was delivered spontaneously. The uterus was cleared of clots and debris. The uterine incision was re-approximated with the uterus in vivo. The 1st layer using 0-Vicryl in a running, locked manner. The 2nd layer using 0-Monocryl in a running, vertical, imbricating layer. Additional sutures needed for hemostasis: No. Excellent hemostasis was verified. The Tres retractor was removed. The rectus muscles were not reapproximated. The rectus muscles were then closely inspected to verify hemostasis. Hemostasis was obtained with bipolar cautery. The fascia was then re-approximated using 0-Maxon loop in a running manner. The subcutaneous tissue was then irrigated with saline and hemostasis obtained with bipolar cautery. The subcutaneous tissue was re-approximated using 3-0 plain gut interrupted sutures The skin was reapproximated using 4-0 Monocryl in a running subcuticular manner. Exofin skin adhesive and a Mepiplex dressing were applied. The patient tolerated this procedure well. Sponge, lap and instrument counts were correct x2 active to the procedure. Patient was taken to the recovery area in stable condition. A surgical debrief was completed. The patient received 2 g of IV Ancef and 500 mg of IV azithromycin prior to skin incision. The patient received 40 milliunits in 1 L IV fluid wide open, 1 g IV TXA, 0.2 mg IM Methergine after delivery of the placenta to treat uterine atony.
[2024-08-24] MEDS: CEFAZOLIN 1 GM inj 2 GM IVP (09:00)
--- NOTE | 2024-08-24 10:00 | W.PM.NB ---
Nerve Block Nerve Block Time Seen by Provider: 09:50 Date Seen: 08/24/24 Type of block requested by surgeon for post-operative analgesia: TAP Side: bilateral Time out performed: Yes Verification of patient name: Yes Verification of date of : Yes Site marking: site marked Name of person performing procedure: shiloh ramos Continuous monitoring Was continuous monitoring of O2 sat, B/P, monitoring and evaluation advisor, recorded every 15 minutes?: Yes Procedure Checklist: sterile prep, needles and gloves Ultrasound guided. Images saved: Yes Medications given in 5ml increments after negative aspiration: Marcaine %: 0.25 mL: 30 and Exparel mL: 10 Patient tolerated procedure well: Yes Block Charges Block Charge (with Pro Fee): TAP Bilateral Use of Ultrasound Machine for Block: Yes- US Guidance/pain block
--- NOTE | 2024-08-24 10:01 | P.ANES_ITS ---
Anesthesia Charges Start Date/Time Anesthesia Start Date: 08/24/24 Anesthesia Start Time: 08:53 Stop Date/Time Anesthesia Stop Date: 08/24/24 Anesthesia Stop Time: 10:03 Summary Emergency: AIRPLANE PILOT SUPERVISOR Coding CPT Codes CPT Codes: ANES/ANALG CS DELIVER ADD-ON - 94911 ([id number]) P2 - PATIENT W/MILD SYST DISEASE, QK - AIRCRAFT LOAD CONTROLLER 2-4 CNCRNT ANES PROC, QX - AIRPLANE PILOT SUPERVISOR SVC W/ MD MED DIRECTION Additional Codes: Summary - Emergency: AIRPLANE PILOT SUPERVISOR ([id number])
--- NOTE | 2024-08-24 10:01 | W.ANESCHARGE ---
Anesthesia Charges Start Date/Time Anesthesia Start Date: 08/24/24 Anesthesia Start Time: 08:53 Stop Date/Time Anesthesia Stop Date: 08/24/24 Anesthesia Stop Time: 10:03 Summary Emergency: PERSONNEL COUNSELOR Coding CPT Codes CPT Codes: ANES/ANALG CS DELIVER ADD-ON - 65958 ([id number]) P2 - PATIENT W/MILD SYST DISEASE, QK - FLOOR COVERINGS SALESPERSON 2-4 CNCRNT ANES PROC, QX - PERSONNEL COUNSELOR SVC W/ MD MED DIRECTION Additional Codes: Summary - Emergency: PERSONNEL COUNSELOR ([id number])
[2024-08-24] MEDS: LACTATED RINGERS 1000 ML 1,000 ML 125 ML IV (10:57)
--- NOTE | 2024-08-24 15:05 | PM.ANPOST ---
Post Anesthesia Note Post Anesthesia Note Patient seen: Inpatient Respiratory Status: adequate Cardiovascular Status: adequate Mental Status: baseline Pain: adequate Temp: baseline Anesthetic awareness: N/A Complications: none Follow care: none
[2024-08-24] MEDS: ACETAMINOPHEN 500 MG TABLET 1000 MG PO (15:15)
[2024-08-24] MEDS: KETOROLAC 30 MG/ML inj IVP ×2 (15:59→22:01)
[2024-08-24 16:53] LABS: Rapid Plasma Reagin (RPR) Non Reactive (Non Reactive)
[2024-08-25] MEDS: ACETAMINOPHEN 500 MG TABLET 1000 MG PO ×4 (01:49→20:39)
[2024-08-25] MEDS: KETOROLAC 30 MG/ML inj IVP ×3 (04:04→16:01)
[2024-08-25 04:06] VITALS: BP 111/68; PULSE 70; RESP 16; TEMP 36.8; O2SAT 97
[2024-08-25 06:45] LABS: Hemoglobin* 9.1 gm/dL (12.0-16.0)
[2024-08-25 08:21] VITALS: BP 120/71; PULSE 91; RESP 16; TEMP 36.7; O2SAT 97
[2024-08-25] MEDS: DOCUSATE SODIUM 100 MG CAPSULE PO (08:24)
--- NOTE | 2024-08-25 10:59 | PM.OBPNVD1 ---
OB - PN:Subj Subjective Date Seen: 08/25/24 Interval history: Ruben is a 24 yo G1 now P1-0-0-1 woman who is s/p emergent primary delivery for non-reassuring status on 08/24/24 at 40 3/7 weeks' gestation. She had Cervidil and Cook Catheter for cervical ripening. She had Pitocin for induction of labor, and reached 7 cm/90% effacement/ 0 station but nonreassuring tracing developed. She had an emergent for prolonged deceleration under epidural anesthesia. She gave to a female with Apgars of 8 & 9, weight 3820 g. OB Problem List: # UTI asymptomatic Staph aureus in ED on 01-31-24. # Tobacco use/E-cigarette use. # History of situational depression. # Right renal pelviectasis: F/U US needed 3rd trimester x repeat US at 30 weeks: Right renal pelvis 7mm. follow-up will be needed. # degenerative disc disease L5-S1 #Anemia - on PO iron, Hgb 10.7 at 34 weeks Narrative: She reports some soreness once changing position. Otherwise, she has no complaints. She is tolerating a regular diet and passing flatus. She is her infant daughter, who is doing well. She denies any heavy bleeding. OB - PN: Obj Exam Physical Exam: Vital signs: Temp Pulse Resp BP Pulse Ox O2 Del Method 98.1 F 91 16 120/71 97 Room Air 08/25/24 08:21 08/25/24 08:21 08/25/24 08:21 08/25/24 08:21 08/25/24 08:21 08/25/24 08:21 Narrative: General: Pleasant, no acute distress Heart: Regular rate and rhythm, no murmur or gallop Lungs: Clear to auscultation bilaterally Abdomen: Soft, nontender, fundus at umbilicus, normoactive bowel sounds, incision clean, dry, and intact Lower extremities: 1+ edema in bilateral lower extremities, no erythema OB - PN: Obj Data Labs Labs: Laboratory Results - last 24 hr 08/22/24 08/25/24 15:20 06:40 Hgb 9.1 L RPR Screen Non Reactive OB - PN: A/P Delivery Assessment and Plan (1) S/P primary low transverse : Problem details: Code White for extended deceleration. Girl. Eri. Apgars 8/9. 8#7oz Status: Acute Assessment and Plan: Appropriate course. Will follow pain control throughout the day. She does have a history of chronic low back pain. She desires discharge tomorrow if feasible. (2) Chronic low back pain: Status: Chronic (3) Anemia associated with acute blood loss: Status: Acute Assessment and Plan: Begin ferrous sulfate every other day. Plan day: 1 Plan: routine care
[2024-08-25] MEDS: FERROUS SULFATE 325 MG TABLET PO (14:20)
[2024-08-25 17:00] VITALS: BP 135/84; PULSE 70; RESP 16; TEMP 36.7; O2SAT 98
[2024-08-25 20:28] VITALS: BP 124/82; PULSE 86; RESP 16; TEMP 37.1; O2SAT 96
[2024-08-26 03:09] VITALS: BP 126/81; PULSE 76; RESP 18; TEMP 36.7; O2SAT 94
[2024-08-26] MEDS: IBUPROFEN 600 MG TABLET PO (06:30)
[2024-08-26 08:40] VITALS: BP 116/72; PULSE 77; RESP 18; TEMP 36.9; O2SAT 97
[2024-08-26] MEDS: DOCUSATE SODIUM 100 MG CAPSULE PO (08:41)
[2024-08-26] MEDS: ACETAMINOPHEN 500 MG TABLET 1000 MG PO (08:41)
--- NOTE | 2024-08-26 11:18 | P.DS_ITS ---
DS: Providers Provider Date Seen: 08/26/24 Date of admission: 08/22/24 13:35 Primary care physician: Dalila Fregoso MD Admitting Clinician: Sondra Drummond MD Attending Physician on discharge: Lara Mead MD Date of Discharge: 08/26/24 DS: Diagnosis Discharge Diagnosis (1) Anemia associated with acute blood loss: Status: Acute (2) S/P primary low transverse : Status: Acute Problem details: Code White for extended deceleration. Girl. Eri. Apgars 8/9. 8#7oz (3) Chronic low back pain: Status: Chronic Exam Narrative: Exam Narrative: General: Pleasant, no acute distress Heart: Regular rate and rhythm, no murmur or gallop Lungs: Clear to auscultation bilaterally Abdomen: Soft, nontender, fundus well below umbilicus, incision clean / dry / intact Lower extremities: No edema or erythema Const: Vital Signs, click to edit/add: Vital Signs - 24 hr 08/25/24 17:00 08/25/24 20:28 08/26/24 03:09 Temperature 98.1 F 98.7 F 98.0 F Pulse Rate [Pulse Oximeter] 70 86 76 Respiratory Rate 16 16 18 Blood Pressure [Ri ght Arm] 135/84 124/82 126/81 Pulse Oximetry 98 96 94 Oxygen Delivery Me thod Room Air Room Air Room Air 08/26/24 08:40 Temperature 98.4 F Pulse Rate [Pulse Oximeter] 77 Respiratory Rate 18 Blood Pressure [Ri ght Arm] 116/72 Pulse Oximetry 97 Oxygen Delivery Me thod Room Air OB - DS: Summary Hospital Course Hospital Course: Ruben is a 24 yo G1 now P1-0-0-1 woman who is s/p emergent primary delivery for non-reassuring status on 08/24/24 at 40 3/7 weeks' gestation. She had Cervidil and Cook Catheter for cervical ripening. She had Pitocin for induction of labor, and reached 7 cm/90% effacement/ 0 station but nonreassuring tracing developed. She had an emergent for prolonged deceleration under epidural anesthesia. She gave to a female with Apgars of 8 & 9, weight 3820 g. OB Problem List: # UTI asymptomatic Staph aureus in ED on 11-26-24. # Tobacco use/E-cigarette use. Currently vaping. # History of situational depression. # Right renal pelviectasis: F/U US needed 3rd trimester x repeat US at 30 weeks: Right renal pelvis 7mm. follow-up will be needed. # degenerative disc disease L5-S1; chronic back pain #Anemia - on PO iron, Hgb 10.7 at 34 weeks - Hb 9.1 on POD #1 the patient has done well. Today, on POD #2, Ruben reports that pain is acceptably controlled. She is her infant daughter. She is tolerating a regular diet and passing flatus. She denies heavy bleeding. She has not used E-cigarette since her admission. We discussed nicotine replacement options. She declines at this time. She has chronic low back pain. She sees a chiropractor. I offered her a PT referral; she may request at any time. Peripartum Data Procedures: Procedures Operation Date: 08/24/24 09:00 Actual Procedure Side Surgeon p PRIMARY LOW TRANSVERSE Section Meaghan Ray MD [place] Gender: Female Time Spent with Patient Time attestation: Total time spent providing and/or coordinating discharge services: Discharge Plan Discharge Disposition: Home, Self-Care Date of Admission: 08/22/24 13:35 Attending Provider on Discharge: Lara Mead Primary Care Provider: Dalila Fregoso Condition: Stable Anticipated Discharge Date/Time: 08/26/24 11:21 Discharge Medications: New acetaminophen 500 mg Tablet 1,000 mg PO Q6H PRN (Reason: Pain) Qty: 0 0RF ferrous sulfate 325 mg (65 mg iron) Tablet 325 mg PO Q48H Qty: 30 0RF ibuprofen 600 mg Tablet 600 mg PO Q6H PRN (Reason: Pain) Qty: 60 0RF Lanolin (HPA) 100 % Cream 1 applic topical Q1H PRNQty: 0 0RF oxycodone 5 mg Tablet 5 - 10 mg PO Q4H PRN (Reason: Pain) Qty: 25 0RF Continued DHA 200 mg capsule 200 mg PO DAILY docusate sodium [Colace] 100 mg capsule 100 mg PO BID PRN aspirin [Children's Aspirin] 81 mg tablet,chewable 81 mg PO QDAY Discontinued acetaminophen [Tylenol] 325 mg tablet 650 mg PO Q6H PRN ferrous sulfate [FeroSul] 325 mg (65 mg iron) tablet 325 mg PO DAILY Discharge Orders: Discharge Order (Routine); Ordered 08/26/24 Ordered By: Lara Mead Patient Education: OB Over the Counter Medication Information, OB /Breast Feeding Additional Instructions: Discharge instructions were reviewed with the patient including signs and symptoms of infection and home going medications Lifting Restrictions: 20 pounds for 6 weeks No not submerge incision under water X 2 weeks? Nothing vaginally for 6 weeks: no tampons or intercourse Do not drive while taking narcotic pain medication(s) Off Work or School for 8 weeks Symptoms to report to doctor: * Bleeding that saturates more than one pad per hour * Passing clots larger than the size of a golf ball * Pain not relieved by prescribed medication * Fever above 100.4 degrees Fahrenheit * A foul vaginal odor * Difficulty in emotions, mood, and functions * Thoughts of hurting yourself and/or * Painful, reddened area in your breast * Any drainage, redness, or tenderness in your IV/epidural site * Severe headache that doesn't improve after taking medications * Changes in vision, including temporary loss of vision, blurred vision, and/or light sensitivity * Upper abdominal pain (usually under ribs on the right side) * Decrease in urination or painful, frequent urinating * Chest pain * Shortness of breath * Tenderness or pain with redness and/swelling in the calf(s) of your leg Optional 2-week visit: incision check, discuss feeding concerns, review control options and screen for anxiety/depression. 6-week visit for an annual exam. consultation services are available to all mothers and babies for the first year after delivery.? To make an appointment, please call [phone]. Discharge Diet: Regular Follow Up Appointments: [facility] [Provider Group] Forms: [employer] Info Instructions
== END 2024-08-26 12:15 | disposition home or self-care (01) | DRG 540 ==
LOC: OB OUT 13:35 → OB 13:35
PROVIDERS: Obstetrics & Gynecology; Admitting Provider Obstetrics & Gynecology; PCP Family Medicine; Visit Provider Obstetrics & Gynecology
PROC: 10D00Z1 Extraction of Products of Conception, Low, Open Approach (ICD-10-PCS; CPT 59514; principal; 2024-08-24 09:00)
DX: O36.8130 Decreased fetal movements, third trimester, not applicable or unspecified (principal); O76 Abnormality in fetal heart rate and rhythm complicating labor and delivery; O35.EXX0 Maternal care for other (suspected) fetal abnormality and damage, fetal genitourinary anomalies, not applicable or unspecified; O99.02 Anemia complicating childbirth; D62 Acute posthemorrhagic anemia; G89.18 Other acute postprocedural pain; O99.334 Smoking (tobacco) complicating childbirth; F17.290 Nicotine dependence, other tobacco product, uncomplicated; G89.29 Other chronic pain; M51.379 Other intervertebral disc degeneration, lumbosacral region without mention of lumbar back pain or lower extremity pain; Z37.0 Single live birth; Z3A.40 40 weeks gestation of pregnancy
CPT/HCPCS: 01967; 01968; 36415; 59200; 64488; 76942; 82565; 84450; 84460; 84520; 85018; 85025; 85027; 86592; 86850; 86900; 86901; 88307; 99140; A4314; A9270; C1726; J0456; J0665; J0666; J0690; J1100; J1885; J2210; J2371; J2405; J2590; J2795; J3010; J7050; J7120

== ENCOUNTER 2024-09-12 08:27 | Outpatient (CLI) | payer BC, SELFPAY ==
--- NOTE | 2024-09-12 09:38 | P.LACCB_ITS ---
Consult Note - Mom Date of Visit Date of visit: 09/12/24 Reason for consultation: Assistance Needed and Low Milk Supply Visit Code: Visit Patient's Information Phone number: [phone] : 1 Para: 1 Allergies amoxicillin Allergy (Intermediate, Verified 08/13/24 09:05) seasonal Allergy (Mild, Uncoded 08/13/24 09:05) Mother's medical history: Other (Minimal breast changes during ) Mother's Medical History: Medical History (Updated 09/03/24 @ 00:00 by Background Daemon) Pyelectasis of fetus on ultrasound ?O35.EXX0 - Maternal care for other (suspected) abnormality and damage, genitourinary anomalies, not applicable or unspecified (ICD-10) Asthma, exercise induced ?J45.990 - Exercise induced bronchospasm (ICD-10) Work Plans: return to work in Nov 2024 Delivery Information Gestational Age: 40+4 Gestational Weight For Age: AGA Weight: 3.82 kg Discharge Weight: 3.572 kg Percentage weight loss: 6.5 Baby's Information Baby's Age at Visit: 19 days Baby's Provider or Clinic: [facility] Jaundice: No Past Experience Past Experience: No Current Frequency of Day Feedings: every 1.5-2 hours Frequency of Night Feedings: every 2 hours Both Breasts: Yes Suck: pretty strong Latch: on and off multple times Length of Time: 10-15 x1st, 5-10x 2nd side Goals: BFx 1 month, then pump and bottle Pumping Pumping: Yes Quantity Pumped: 1/2 oz at most Supplementing EBM Supplement: No Formula Supplement: Yes (3 times in last 2 days for hunger cues, took 1-1.5 oz ea time) Baby Elimination Number of Wet Diapers a Day: 7-8 Number of BM a Day: 2 larger, then 2-3 small Breast/Nipple Condition Breast Information: Breasts are symmetrical with rounded lower quadrants, intramammary distance is less than 1.5 inches. No erythema. Nipples are supple, everted prior to feeding. Breast Shape: Round and Pliable Engorgement: No (never really felt milk come in) Maternal Nipple Condition - Left: Common Nipple Maternal Nipple Condition - Right: Common Nipple Sore Nipples: No Baby Assessment Skin: Normal Tongue/frenulum: Normal/elastic Palate: Average Lips: Relaxed and Symmetrical Jaw Alignment: Symmetrical Mucosa: [place], moist Onsite Observation Pre-Feed weight: 3.466 kg Post-Feed weight: 3.478 kg Milk Transferred (mL): 12 Position: Cross cradle Attachment/latch-on achieved: Easily Suck pattern: Extended suck phase (swallows every 10-12 sucks) Swallow: Occasionally Behavior following feed: Alert, fussy Pre-Nursing Left Nipple: Within Normal Limits Pre-Nursing Right Nipple: Within Normal Limits Post-Nursing Left Nipple: Within Normal Limits Post-Nursing Right Nipple: Within Normal Limits Assessments/Interventions Assessments/Interventions: Mom: Ruben reports feeling pretty good with recovery after an unplanned . She does note her bleeding had been pretty light for 3-4 days, light pink discharge noted. Yesterday she had an increase in bleeding, bright red in color and lots of small clots noted. The bleeding continues like this today. No increase or change in physical activity noted to coincide with increase in bleeding. No cramping, no fever. She is drinking well, eating ok. Alyssa latches well, eager to feed. Alyssa has a shallow latch to start, relatched baby for a wider, deeper latch with minimal changes in swallowing noted. On and off the breast throughout the feeding Tried breast compression to engage baby more in feeding without much success Education provided: Asymmetric latch technique for wide/deep latch to increase milk, Transfer for baby and increase comfort for mom, Supply/demand nature of milk supply, Need for frequent stimulation/milk removal, Alternative feeding methods (SNS, cup, finger feeding, bottling), Pumping for milk management and Milk collection, storage Feeding Plan: Mom will consider options discussed: Feeding 5-10 min ea side, then pump and supplement Consider galactogogue to see if helps milk supply Just pump every 2-3 hours, feed EBM and supplement as needed for volume Discontinue BFing/pumping and formula feed only Follow-Up Recommend baby be seen by provider for:: weight check in 2 days Recommend mom be seen by provider for:: scheduled appt today; discussed bleeding noted yesterday and today AND low milk supply Time Spent Time spent with patient (min): 75 Meds Home Medications and Allergies Home Medications ?Medication ?Instructions ?Recorded ?Confirmed ?Type docosahexaenoic acid 200 mg 200 mg PO DAILY 01/17/24 0 08/23/24 History capsule ( DHA) docusate sodium 100 mg capsule 100 mg PO BID PRN 02/1308/23/24 History (Colace) aspirin 81 mg chewable tablet 81 mg PO QDAY 03/23/24 0 08/23/24 History (Children's Aspirin) acetaminophen 500 mg tablet 1,000 mg (2 x 500 mg) PO Q 6H PRN 08/26/24 Rx Pain #0 tabs ferrous sulfate 325 mg (65 mg 325 mg PO Q48H #30 tabs 08/26/24 Rx iron) tablet ibuprofen 600 mg tablet 600 mg PO Q6H PRN Pain #60 t abs 08/26/24 Rx modified lanolin 100 % topical 1 applic topical Q1H NC N #0 grams 08/26/24 Rx cream (Lanolin (HPA)) oxycodone 5 mg tablet 5 - 10 mg (1 - 2 x 5 mg) PO Q4H 08/26/24 Rx PRN Pain #25 tabs Allergies Allergy/AdvReac Type Severity Reaction Status Date / Time amoxicillin Allergy Intermediate Verified 08/13/24 09:05 seasonal Allergy Mild Uncoded 08/13/24 09:05
== END 2024-09-12 08:28 | disposition home or self-care (01) ==
LOC: OB LAC 08:28
PROVIDERS: PCP Family Medicine; Visit Provider Obstetrics & Gynecology
DX: Z39.1 Encounter for care and examination of lactating mother (principal)
CPT/HCPCS: G0463

== ENCOUNTER 2024-10-10 11:22 | Outpatient (CLI) | payer BC, SELFPAY ==
[2024-10-12 11:06] LABS: Pap Test Digital Imaging Done
== END 2024-10-10 11:23 | disposition home or self-care (01) ==
PROVIDERS: PCP Family Medicine; Visit Provider Registered Nurse
DX: Z39.2 Encounter for routine postpartum follow-up (principal)
CPT/HCPCS: 87624; 87625; 88141; 88142; 88175